=== PATIENT | female | born 1975 | race Caucasian/White ===

== ENCOUNTER 2021-11-12 08:06 | Day surgery (SDC) | payer OTHER ==
[~2021-11-12] VITALS: Ht 172.7 cm; Wt 124.5 kg
[~2021-11-12 08:06] MED LIST: DEXAMETHASONE SOD PHOS 4 MG/ML VIAL ONE; HYDROmorphone 2 MG/ML INJ. IVP PRN; IV RINGERS,LACTATED 1000ML 1,000 ML IV SCH; LIDOCAINE 1% PF 5 ML VIAL. ONE; MORPHINE SULFATE 2 MG/ML INJ. IVP PRN; ONDANSETRON PF 4 MG/2 ML VIAL. ONE; PROCHLORPERAZINE 10 MG/2 ML VIAL. IVP PRN; PROPOFOL 10 MG/ML (20ML) VIAL. IV ONE; ROCURONIUM 50 MG/5 ML VIAL. ONE; ceFAZolin SODIUM 3 GM in IV DEXTROSE 5% 100ML 100 ML IV PRN; fentaNYL PF VIAL 100 MCG/2 ML VIAL IVP PRN; fentaNYL PF VIAL 100 MCG/2 ML VIAL ONE
[2021-11-12] MEDS ORDERED: ATOR20TA58 PO (08:21)
[2021-11-12] MEDS ORDERED: ALBU2.5V8 IH (08:21)
[2021-11-12] MEDS ORDERED: PANT40TA77 PO (08:21)
[2021-11-12] MEDS ORDERED: FLUT1DIS5 IH (08:21)
[2021-11-12] MEDS ORDERED: FAMO20TA5 PO (08:21)
[2021-11-12 08:26] VITALS: BP 138/90
[2021-11-12] MEDS ORDERED: SURGICEL HEMOSTAT 4X8 EACH. ONE (09:37)
[2021-11-12] MEDS ORDERED: IOHEXOL 300 MG/ML 50 ML VIAL. ONE (09:37)
[2021-11-12] MEDS ORDERED: BUPIVACAINE-EPI 0.5% 30 ML VIAL KIT. ONE (09:37)
[2021-11-12] MEDS ORDERED: SUGAMMADEX SODIUM 200 MG/2 ML VIAL. IVP ONE (10:15)
--- NOTE | 2021-11-12 11:19 | PDOC4 ---
Operative Note Operative Note Operative Note: Preoperative Diagnosis: Biliary dyskinesia Postoperative Diagnosis: Same Procedure: Laparoscopic cholecystectomy with intraoperative cholangiogram Surgeons: Scottie Reed Maker: Mike Terry MS 3 Anesthesia: Gen. Estimated Blood Loss: 10 mL Specimen: Gallbladder to pathology Drains: None Complications: None Indications: The patient is a 46-year-old female who is referred with suspected biliary dyskinesia. Surgical treatment was offered by means of a laparoscopic cholecystectomy. The risks of surgery were discussed which include bleeding, infection, bile duct injury, bile leak, pain, the potential for additional surgeries or procedures. The patient understands and would like to proceed. Description: The patient was taken to the operating room and laid supine on the operating table. General anesthesia was performed. The abdomen was prepped with ChloraPrep and draped in a standard surgical fashion. A small supr aumbilical incision was made with a scalpel. The Veress needle was then inserted and a pneumoperitoneum was then created. A 5 mm trocar was then inserted and the laparoscope was introduced. In the upper midabdomen a 5 mm trocar was inserted and in the right upper quadrant two 2.3 mm mini lap graspers were inserted. The gallbladder was retracted cephalad. The cystic duct was d issected free from surrounding tissues. One clip was placed on the duct near the gallbladder junction. An opening was made in the duct and a cholangiocatheter placed within and secured with a clip. Using contrast dye and fluoroscopy an intraoperative cholangiogram was performed that appeared unremarkable. The clip and catheter were then withdrawn. Three clips were placed on the cystic duct and it was divided. The cystic artery was then identified, dissected free, doubly clipped and divided as well. The gallbladder was then mobilized away from the liver with cautery. The umbilical 5 millimeter trocar was exchanged for an 11 millimeter trocar. The gallbladder was then placed in an endoscopic bag and extracted at the umbilical trocar site. The fascia there was closed with an 0 Vicryl suture and infiltrated with 0.5% marcaine. All blood and irrigation fluid was suctioned and hemostasis was good. The remaining ports were removed and the pneumoperitoneum was relieved. The skin incisions were closed using 4-0 Monocryl suture. Steri-Strips and dressings were then applied. The patient tolerated the procedure well and was sent to the recovery room in stable condition. At the end of the case all counts were correct. LUZ ELENA BOND MD Nov 12, 2021 11:19
--- NOTE | 2021-11-12 11:19 | RAD ---
Study: DG INTRAOPERATIVE CHOLANGIOGRAM Indication: Intraoperative cholangiogram. Comparison: None. Findings/ Impression: Fluoroscopy time: 0.1 minute Fluoroscopic images: 2 Cystic duct ligation. Intraoperative cholangiography with opacification of the intrahepatic and extra hepatic biliary tree. Normal spillage of contrast into the duodenum. No evidence for a leak on the pr ovided images. See the operative report for details. Electronically signed by: YADIEL HUSSEIN MD (11/12/2021 11:16 AM) AB
[2021-11-12] MEDS ORDERED: OXYC-325 PO ×2 (11:21→11:53)
--- NOTE | 2021-11-12 11:23 | DISCH ---
DISCHARGE INSTRUCTIONS Condition on Discharge Condition on Discharge: Stable Activity After Discharge Activity Instructions for Disc: Other, see below (No lifting over 20 lbs X 2 weeks, no driving while taking pain meds) Diet after Discharge Diet after Discharge: Regular Wound Incision Care Wound/Incision Care: Other, see below (may remove bandaids tomorrow and shower) Follow-Up Follow up with: Dr Bond in office in 2 weeks, call for appt [phone] LUZ ELENA BOND MD Nov 12, 2021 11:23
[2021-11-12] MEDS ORDERED: fentaNYL PF VIAL 100 MCG/2 ML VIAL ONE (11:26)
[2021-11-12] MEDS ORDERED: PROCHLORPERAZINE 10 MG/2 ML VIAL. ONE (11:29)
[2021-11-12] MEDS: fentaNYL PF VIAL 100 MCG/2 ML VIAL IVP PRN ×2 (11:30→11:40)
[2021-11-12] MEDS ORDERED: oxyCODONE/APAP 5/325 1 TAB TABLET PO ONE ×2 (11:45)
[2021-11-12 12:05] VITALS: BP 110/74
--- NOTE | 2021-11-17 15:11 | PATHOLOGY ---
[facility] Accession Number: [id number] . 01 Material submitted: . gallbladder - GALLBLADDER AND CONTENTS . 01 Clinical history: . BILIARY DYSKINESIA . 02 Diagnosis: Gallbladder, laparoscopic cholecystectomy: - Chronic cholecystitis. (JPM:elena; 11/17/2021) [facility] 11/17/2021 0856 Local . 02 Comment: There are no calculi identified within the gallbladder lumen or specimen container. There is no evidence of malignancy. (JPM:elena; 11/17/2021) . 02 Electronically signed: . Marquise Wallis MD, Pathologist NPI- [id number] . 01 Gross description: . Fixative: Formalin Labeled: Gallbladder and contents Specimen received: Intact cholecystectomy Dimensions: 8.6 x 5.2 x 3.3 cm Serosa: Robb-yellow and smooth Lymph node: Not present Mucosa: Green and velvety with scant adherent friable polypoid yellow material Average wall thickness: 0.1 cm Calculi: Not identified within the gallbladder or container Abnormalities: Previously described A1- [employer] Defense In[employer] body, fundus, and the cystic duct margin. [place] [place] [facility] 11/13/2021 1311 Local . 02 Pathologist provided ICD-10: K81.1 . 02 CPT . 316858 Specimen Comment: A courtesy copy of this report has been sent to [phone] Specimen Comment: Report sent to Specimen Comment: A duplicate report has been generated due to demographic updates. Performed at: 01 [facility] [address], [place], [place] [id number] MD Andre Lemon MD Phone: [phone] Performed at: 02 [facility] [address] [place], [place] [id number] MD Marquise Wallis MD Phone: [phone]
== END 2021-11-12 12:30 | disposition home or self-care (01) ==
LOC: SURG 08:06
PROVIDERS: ATTEND Surgery
DX: K82.8 Other specified diseases of gallbladder (principal); K81.1 Chronic cholecystitis; I10 Essential (primary) hypertension; E78.00 Pure hypercholesterolemia, unspecified; J45.909 Unspecified asthma, uncomplicated; K21.9 Gastro-esophageal reflux disease without esophagitis; M19.90 Unspecified osteoarthritis, unspecified site; F41.9 Anxiety disorder, unspecified; F32.9 Major depressive disorder, single episode, unspecified; Z87.891 Personal history of nicotine dependence; Z98.51 Tubal ligation status; Z98.890 Other specified postprocedural states; Z79.899 Other long term (current) drug therapy; Z72.89 Other problems related to lifestyle
CPT/HCPCS: 47563; 74300; 81025; A4213; A4314; A4364; A4930; A6219; C1887; J0780; J1100; J2405; J2704; J3010; J3490; Q9967; 88304; A4452; A4657